=== PATIENT | male | born 1930 | race Caucasian/White ===

== ENCOUNTER 2017-03-27 13:43 | Inpatient (IN) | payer MEDICARE ==
[2017-03-27] VITALS (9 sets, daily range): BP systolic 104–175; BP diastolic 58–96
[~2017-03-27] VITALS: Ht 172.7 cm; Wt 83.9 kg
[~2017-03-27 13:43] MED LIST: AMIO200T2 PO; AMIODARONE HCL 900MG/18ML IV ONE; APIX5TAB PO; ASPI-1012 PO; ATOR40TA71 PO; CALCIUM CHLORIDE 100 MG/ML 10 ML SYG IVP ONE; EPINEPHRINE 0.1 MG/ML 10 ML SYG IVP ONE; ESCI10TA54 PO; FE F1CAP8 PO; FURO40TA7 PO; METO-408 PO; MONT10TA24 PO; NITR0.4T SL; NOREPINEPHRINE BITARTRATE 1 MG/1 ML ML IV ONE; TERA5CAP4 PO
[2017-03-27 14:15] LABS: BASOPHILS % (AUTO) 1.1 % (0.0-5.0); EOSINOPHILS % (AUTO) 2.5 % (0.0-8.0); LYMPHOCYTES % (AUTO) 37.6 % (21.0-51.0); MEAN CORPUSCULAR HEMOGLOBIN 33.5 pg (27.0-33.0); MEAN CORPUSCULAR HGB CONC 35.1 g/dL (32.0-36.0); MEAN CORPUSCULAR VOLUME 95.5 fL (79-99); MONOCYTES % (AUTO) 5.7 % (3.0-13.0); NEUTROPHILS % (AUTO) 53.1 % (40.0-77.0); NUCLEATED RED BLOOD CELLS 0.5 % (0.0-0.19); PLATELET COUNT (AUTO) 95 K/uL (130-400); RED BLOOD CELL COUNT(AUTO) 3.56 MIL/uL (4.50-6.20); RED CELL DISTRIBUTION WIDTH 14.2 % (11.0-15.5); WHITE BLOOD COUNT (AUTO) 3.9 K/uL (4.8-10.8)
[2017-03-27 14:16] LABS: CREATININE 1.7 mg/dL (0.5-1.5); POTASSIUM 3.7 mmol/L (3.5-5.1)
[2017-03-27 14:23] LABS: INR 1.08 (0.85-1.15); PARTIAL THROMBOPLASTIN TIME 22.9 SEC (26.3-35.5); PROTHROMBIN TIME 11.3 SEC (9.6-11.6)
[2017-03-27 14:30] LABS: ALBUMIN 1.9 g/dL (3.5-5.0); BILIRUBIN,TOTAL 0.4 mg/dL (0.2-1.0); CREATINE KINASE MB 3.6 ng/mL (0.5-3.6); TOTAL PROTEIN, SERUM 4.6 g/dL (6.0-8.3)
[2017-03-27] MEDS ORDERED: PROPOFOL 1000 MG/100 ML 100 ML IV ONE (14:31)
[2017-03-27] MEDS ORDERED: ONDANSETRON HCL 4 MG/2 ML VIAL IV PRN (15:45)
[2017-03-27] MEDS ORDERED: ACETAMINOPHEN 325 MG TAB PO PRN ×3 (15:45→22:00)
[2017-03-27 15:48] LABS: ABG BASE EXCESS -4.4 mmol/L (-2.0-3.0); ABG HCO3 18.5 mmol/L (21.0-28.0); ABG OXYGEN SATURATION 99.9 % (95.0-99.0); ABG PCO2 29 mmHg (35-48)
[2017-03-27] MEDS ORDERED: SODIUM CHLORIDE 0.9% 1000ML 1,000 ML IV ONE (17:07)
[2017-03-27 20:21] LABS: CREATINE KINASE MB 42.7 ng/mL (0.5-3.6)
[2017-03-27 20:36] LABS: TROPONIN I 3.3 ng/mL (0.00-0.06)
[2017-03-27] MEDS ORDERED: ZOSYN 3.375GM+NS 50ML 50 ML IV SCH (21:00)
[2017-03-27] MEDS ORDERED: HEPARIN SODIUM 5000UNIT/ML 1ML VIAL SQ SCH (22:00)
[2017-03-27] MEDS: PROPOFOL 1000 MG/100 ML 100 ML IV PRN (22:42)
[2017-03-27] MEDS: MEROPENEM 1 GM VIAL IVP SCH (22:43)
[2017-03-27 22:58] LABS: ABG BASE EXCESS -7.1 mmol/L (-2.0-3.0); ABG OXYGEN SATURATION 99.2 % (95.0-99.0); ABG PCO2 31 mmHg (35-48)
[2017-03-27 23:11] LABS: TROPONIN I 4.93 ng/mL (0.00-0.06)
[2017-03-27] MEDS ORDERED: MULT-1203 PO (23:19)
[2017-03-27] MEDS ORDERED: POTA10CA44 PO (23:19)
[2017-03-27] MEDS ORDERED: AMIO100T4 PO (23:19)
[2017-03-27] MEDS ORDERED: AEC81 PO (23:19)
[2017-03-27] MEDS ORDERED: METO-391 PO (23:19)
[2017-03-28] VITALS (30 sets, daily range): BP systolic 87–137; BP diastolic 31–86
[2017-03-28] MEDS ORDERED: ARTIFICAL TEARS SOL 15 ML ONE (00:48)
[2017-03-28 05:08] LABS: HEMATOCRIT 39.3 % (42-54); MEAN CORPUSCULAR HEMOGLOBIN 32.2 pg (27.0-33.0); MEAN CORPUSCULAR HGB CONC 34.8 g/dL (32.0-36.0); MEAN CORPUSCULAR VOLUME 92.6 fL (79-99); PLATELET COUNT (AUTO) 110 K/uL (130-400); RED BLOOD CELL COUNT(AUTO) 4.24 MIL/uL (4.50-6.20); RED CELL DISTRIBUTION WIDTH 14.2 % (11.0-15.5); WHITE BLOOD COUNT (AUTO) 16.3 K/uL (4.8-10.8)
[2017-03-28 05:10] LABS: ALBUMIN 2.2 g/dL (3.5-5.0); BILIRUBIN,TOTAL 0.5 mg/dL (0.2-1.0); CREATININE 3.1 mg/dL (0.5-1.5); POTASSIUM 3.8 mmol/L (3.5-5.1); TOTAL PROTEIN, SERUM 5.4 g/dL (6.0-8.3)
[2017-03-28] MEDS: MEROPENEM 1 GM VIAL IVP SCH ×2 (05:42→17:13)
[2017-03-28] MEDS: ARTIFICAL TEARS SOL 15 ML OD SCH ×4 (05:43→23:53)
[2017-03-28] MEDS: PROPOFOL 1000 MG/100 ML 100 ML IV PRN ×4 (06:38→20:26)
[2017-03-28] MEDS ORDERED: CLOPIDOGREL BISULFATE 300 MG TAB NG SCH (07:15)
[2017-03-28 07:16] LABS: LYMPHOCYTES % (MANUAL) 3 % (22-44); MAN.DIFF COMMENT-IMPRESSION MANUAL DIFFERENTIAL; MONOCYTES % (MANUAL) 5 % (2-9); PLATELET MORPHOLOGY COMMENT SLIGHTLY DECREASED; SEGMENTED NEUTROPHILS % 92 % (40-70)
[2017-03-28 07:34] LABS: ABG BASE EXCESS -0.7 mmol/L (-2.0-3.0); ABG HCO3 23.2 mmol/L (21.0-28.0); ABG OXYGEN SATURATION 97.7 % (95.0-99.0); ABG PCO2 36 mmHg (35-48)
[2017-03-28] MEDS ORDERED: ENOXAPARIN SODIUM 40 MG/0.4 ML SYRINGE SQ SCH (09:00)
[2017-03-28] MEDS: METOPROLOL TARTRATE 25 MG TAB NG SCH ×2 (09:00→21:00)
[2017-03-28] MEDS ORDERED: FAMOTIDINE/PF 20 MG/2 ML VIAL IV SCH (09:00)
[2017-03-28] MEDS ORDERED: HEPARIN 25000 UNITS/250 ML D5W 250 ML IV PRN (09:45)
[2017-03-28] MEDS ORDERED: MEPERIDINE-PF 25 MG/ML SYG IM PRN (09:45)
[2017-03-28] MEDS ORDERED: NOREPINEPHRINE 4MG/NS 250ML 250 ML IV SCH (09:45)
[2017-03-28] MEDS ORDERED: FENTANYL 2500MCG+NS 250ML 250 ML IV PRN (09:45)
[2017-03-28] MEDS: AMIODARONE HCL 200 MG TABLET PO SCH (10:58)
[2017-03-28] MEDS: LACTATED RINGERS 1000ML 1,000 ML IV SCH ×2 (10:58→23:53)
[2017-03-28] MEDS: ASPIRIN 81MG TAB.CHEW PO SCH (10:58)
[2017-03-28 14:19] LABS: HEMATOCRIT 38.2 % (42-54); MEAN CORPUSCULAR HEMOGLOBIN 31.7 pg (27.0-33.0); MEAN CORPUSCULAR VOLUME 93.3 fL (79-99); PLATELET COUNT (AUTO) 104 K/uL (130-400); RED BLOOD CELL COUNT(AUTO) 4.09 MIL/uL (4.50-6.20); WHITE BLOOD COUNT (AUTO) 18.6 K/uL (4.8-10.8)
[2017-03-28 14:32] LABS: CREATININE 3.2 mg/dL (0.5-1.5); POTASSIUM 3.8 mmol/L (3.5-5.1)
[2017-03-28] MEDS: CHLORHEXIDINE GLUCONATE 473 ML MOUTHWASH MM SCH ×2 (15:13→21:16)
[2017-03-28 15:31] LABS: BAND NEUTROPHILS % (MANUAL) 4 % (0-2); LYMPHOCYTES % (MANUAL) 3 % (22-44); MAN.DIFF COMMENT-IMPRESSION MANUAL DIFFERENTIAL; MONOCYTES % (MANUAL) 6 % (2-9); SEGMENTED NEUTROPHILS % 87 % (40-70)
[2017-03-28 15:38] LABS: PLATELET MORPHOLOGY COMMENT LARGE PLTS PRESENT
[2017-03-28 21:22] LABS: HEMATOCRIT 37.6 % (42-54); MEAN CORPUSCULAR HEMOGLOBIN 31.5 pg (27.0-33.0); MEAN CORPUSCULAR HGB CONC 33.9 g/dL (32.0-36.0); PLATELET COUNT (AUTO) 111 K/uL (130-400); RED BLOOD CELL COUNT(AUTO) 4.04 MIL/uL (4.50-6.20); RED CELL DISTRIBUTION WIDTH 14.3 % (11.0-15.5); WHITE BLOOD COUNT (AUTO) 20.5 K/uL (4.8-10.8)
[2017-03-28 21:36] LABS: CREATININE 3.4 mg/dL (0.5-1.5); POTASSIUM 4.5 mmol/L (3.5-5.1)
[2017-03-28 22:18] LABS: BAND NEUTROPHILS % (MANUAL) 12 % (0-2); LYMPHOCYTES % (MANUAL) 2 % (22-44); MAN.DIFF COMMENT-IMPRESSION MANUAL DIFFERENTIAL; MONOCYTES % (MANUAL) 7 % (2-9); SEGMENTED NEUTROPHILS % 79 % (40-70)
[2017-03-29] VITALS (22 sets, daily range): BP systolic 97–173; BP diastolic 34–87
[2017-03-29] MEDS: PROPOFOL 1000 MG/100 ML 100 ML IV PRN ×3 (03:04→21:53)
[2017-03-29] MEDS: MEROPENEM 1 GM VIAL IVP SCH ×2 (06:17→17:03)
[2017-03-29] MEDS: ARTIFICAL TEARS SOL 15 ML OD SCH ×4 (06:18→23:44)
[2017-03-29] MEDS: CHLORHEXIDINE GLUCONATE 473 ML MOUTHWASH MM SCH ×3 (06:19→22:00)
[2017-03-29 06:43] LABS: HEMATOCRIT 31.4 % (42-54); MEAN CORPUSCULAR HEMOGLOBIN 32.4 pg (27.0-33.0); MEAN CORPUSCULAR VOLUME 92.7 fL (79-99); NUCLEATED RED BLOOD CELLS 0.1 % (0.0-0.19); PLATELET COUNT (AUTO) 102 K/uL (130-400); RED BLOOD CELL COUNT(AUTO) 3.39 MIL/uL (4.50-6.20); RED CELL DISTRIBUTION WIDTH 14.5 % (11.0-15.5); WHITE BLOOD COUNT (AUTO) 18.6 K/uL (4.8-10.8)
[2017-03-29 06:54] LABS: CREATININE 3.6 mg/dL (0.5-1.5); POTASSIUM 4.2 mmol/L (3.5-5.1)
[2017-03-29 07:15] LABS: BAND NEUTROPHILS % (MANUAL) 1 % (0-2); EOSINOPHILS % (MANUAL) 1 % (1-6); LYMPHOCYTES % (MANUAL) 6 % (22-44); MAN.DIFF COMMENT-IMPRESSION MANUAL DIFFERENTIAL; MONOCYTES % (MANUAL) 3 % (2-9); PLATELET MORPHOLOGY COMMENT SLIGHTLY DECREASED; SEGMENTED NEUTROPHILS % 89 % (40-70)
[2017-03-29] MEDS: ASPIRIN 81MG TAB.CHEW PO SCH (08:24)
[2017-03-29] MEDS: AMIODARONE HCL 200 MG TABLET PO SCH (08:24)
[2017-03-29] MEDS: CLOPIDOGREL BISULFATE 75 MG TAB NG SCH (08:24)
[2017-03-29 08:38] LABS: ABG OXYGEN SATURATION 97.2 % (95.0-99.0); ABG PCO2 35 mmHg (35-48)
[2017-03-29] MEDS: METOPROLOL TARTRATE 25 MG TAB NG SCH ×2 (09:00→21:00)
[2017-03-29] MEDS ORDERED: PANTOPRAZOLE 40 MG/VIAL IVP SCH (09:00)
[2017-03-29] MEDS: LACTATED RINGERS 1000ML 1,000 ML IV SCH ×2 (13:32→20:30)
[2017-03-29 15:59] LABS: HEMATOCRIT 30.8 % (42-54); MEAN CORPUSCULAR HEMOGLOBIN 32.6 pg (27.0-33.0); MEAN CORPUSCULAR HGB CONC 35.4 g/dL (32.0-36.0); MEAN CORPUSCULAR VOLUME 92.2 fL (79-99); PLATELET COUNT (AUTO) 114 K/uL (130-400); RED BLOOD CELL COUNT(AUTO) 3.34 MIL/uL (4.50-6.20); RED CELL DISTRIBUTION WIDTH 14.4 % (11.0-15.5); WHITE BLOOD COUNT (AUTO) 19.3 K/uL (4.8-10.8)
[2017-03-29 16:13] LABS: CREATININE 4.1 mg/dL (0.5-1.5); POTASSIUM 4.7 mmol/L (3.5-5.1)
[2017-03-29 16:56] LABS: BAND NEUTROPHILS % (MANUAL) 6 % (0-2); LYMPHOCYTES % (MANUAL) 1 % (22-44); MONOCYTES % (MANUAL) 2 % (2-9); SEGMENTED NEUTROPHILS % 91 % (40-70)
[2017-03-29 16:59] LABS: MAN.DIFF COMMENT-IMPRESSION MANUAL DIFFERENTIAL
[2017-03-29 23:01] LABS: HEMATOCRIT 26.6 % (42-54); MEAN CORPUSCULAR HEMOGLOBIN 32.8 pg (27.0-33.0); MEAN CORPUSCULAR HGB CONC 35.3 g/dL (32.0-36.0); NUCLEATED RED BLOOD CELLS 0.1 % (0.0-0.19); PLATELET COUNT (AUTO) 110 K/uL (130-400); RED BLOOD CELL COUNT(AUTO) 2.86 MIL/uL (4.50-6.20); RED CELL DISTRIBUTION WIDTH 14.4 % (11.0-15.5); WHITE BLOOD COUNT (AUTO) 17.5 K/uL (4.8-10.8)
[2017-03-29 23:12] LABS: CREATININE 4.3 mg/dL (0.5-1.5); POTASSIUM 4.8 mmol/L (3.5-5.1)
[2017-03-29 23:37] LABS: BAND NEUTROPHILS % (MANUAL) 3 % (0-2); LYMPHOCYTES % (MANUAL) 3 % (22-44); MONOCYTES % (MANUAL) 4 % (2-9); SEGMENTED NEUTROPHILS % 90 % (40-70)
[2017-03-29 23:38] LABS: MAN.DIFF COMMENT-IMPRESSION MANUAL DIFFERENTIAL
[2017-03-29 23:39] LABS: PLATELET MORPHOLOGY COMMENT ADEQUATE
[2017-03-30] VITALS (30 sets, daily range): BP systolic 100–169; BP diastolic 44–90
[2017-03-30] MEDS: PROPOFOL 1000 MG/100 ML 100 ML IV PRN (02:47)
[2017-03-30 04:48] LABS: HEMATOCRIT 24.5 % (42-54); MEAN CORPUSCULAR HEMOGLOBIN 31.7 pg (27.0-33.0); MEAN CORPUSCULAR HGB CONC 34.5 g/dL (32.0-36.0); MEAN CORPUSCULAR VOLUME 91.9 fL (79-99); NUCLEATED RED BLOOD CELLS 0.1 % (0.0-0.19); PLATELET COUNT (AUTO) 97 K/uL (130-400); RED BLOOD CELL COUNT(AUTO) 2.67 MIL/uL (4.50-6.20); RED CELL DISTRIBUTION WIDTH 14.4 % (11.0-15.5)
[2017-03-30 05:10] LABS: BAND NEUTROPHILS % (MANUAL) 4 % (0-2); LYMPHOCYTES % (MANUAL) 5 % (22-44); MAN.DIFF COMMENT-IMPRESSION MANUAL DIFFERENTIAL; MONOCYTES % (MANUAL) 1 % (2-9); SEGMENTED NEUTROPHILS % 90 % (40-70)
[2017-03-30 05:12] LABS: CREATININE 4.4 mg/dL (0.5-1.5); POTASSIUM 4.6 mmol/L (3.5-5.1)
[2017-03-30] MEDS: MEROPENEM 1 GM VIAL IVP SCH ×2 (05:45→17:17)
[2017-03-30] MEDS: ARTIFICAL TEARS SOL 15 ML OD SCH ×4 (05:46→23:03)
[2017-03-30] MEDS: CHLORHEXIDINE GLUCONATE 473 ML MOUTHWASH MM SCH ×3 (05:46→21:05)
[2017-03-30] MEDS: CLOPIDOGREL BISULFATE 75 MG TAB NG SCH (09:37)
[2017-03-30] MEDS: ASPIRIN 81MG TAB.CHEW PO SCH (09:37)
[2017-03-30] MEDS: FAMOTIDINE/PF 20 MG/2 ML VIAL IV SCH (09:37)
[2017-03-30] MEDS: AMIODARONE HCL 200 MG TABLET PO SCH (09:37)
[2017-03-30] MEDS: METOPROLOL TARTRATE 25 MG TAB NG SCH ×2 (09:38→21:04)
[2017-03-30] MEDS: LACTATED RINGERS 1000ML 1,000 ML IV SCH ×2 (11:30→23:01)
[2017-03-31] VITALS (20 sets, daily range): BP systolic 127–166; BP diastolic 45–84
[2017-03-31 03:52] LABS: BASOPHILS % (AUTO) 0.6 % (0.0-5.0); HEMATOCRIT 23.3 % (42-54); LYMPHOCYTES % (AUTO) 5.1 % (21.0-51.0); MEAN CORPUSCULAR HEMOGLOBIN 31.4 pg (27.0-33.0); MEAN CORPUSCULAR HGB CONC 34.1 g/dL (32.0-36.0); MEAN CORPUSCULAR VOLUME 92.1 fL (79-99); MONOCYTES % (AUTO) 7.1 % (3.0-13.0); NEUTROPHILS % (AUTO) 87.2 % (40.0-77.0); NUCLEATED RED BLOOD CELLS 0.1 % (0.0-0.19); PLATELET COUNT (AUTO) 110 K/uL (130-400); RED BLOOD CELL COUNT(AUTO) 2.53 MIL/uL (4.50-6.20); WHITE BLOOD COUNT (AUTO) 18.5 K/uL (4.8-10.8)
[2017-03-31 03:57] LABS: INR 0.96 (0.85-1.15); PARTIAL THROMBOPLASTIN TIME 41.5 SEC (26.3-35.5); PROTHROMBIN TIME 10.1 SEC (9.6-11.6)
[2017-03-31 04:22] LABS: CREATININE 4.8 mg/dL (0.5-1.5); MAGNESIUM 2.6 mg/dL (1.80-2.40); PHOSPHORUS 6.7 mg/dL (2.5-4.9); POTASSIUM 4.2 mmol/L (3.5-5.1)
[2017-03-31] MEDS: MEROPENEM 1 GM VIAL IVP SCH (05:30)
[2017-03-31] MEDS: ARTIFICAL TEARS SOL 15 ML OD SCH ×2 (05:32→12:00)
[2017-03-31] MEDS: CHLORHEXIDINE GLUCONATE 473 ML MOUTHWASH MM SCH ×2 (05:32→14:14)
[2017-03-31] MEDS: ASPIRIN 81MG TAB.CHEW PO SCH (08:48)
[2017-03-31] MEDS: METOPROLOL TARTRATE 25 MG TAB NG SCH (08:48)
[2017-03-31] MEDS: AMIODARONE HCL 200 MG TABLET PO SCH (08:48)
[2017-03-31] MEDS: FAMOTIDINE/PF 20 MG/2 ML VIAL IV SCH (08:48)
[2017-03-31] MEDS: CLOPIDOGREL BISULFATE 75 MG TAB NG SCH (08:49)
[2017-03-31] MEDS: MORPHINE SULFATE 2 MG/ML 1ML SYG IM PRN ×6 (13:02→20:30)
[2017-03-31] MEDS: LORAZEPAM 2 MG/ML 1 ML VIAL IM PRN ×2 (13:02→20:37)
[2017-03-31] MEDS ORDERED: MORPHINE SULFATE 5 MG/ML VIAL IV PRN (13:30)
[2017-03-31] MEDS ORDERED: MIDAZOLAM HCL 1 MG/ML 2ML VIAL ONE (13:35)
[2017-03-31] MEDS: MIDAZOLAM HCL 1 MG/ML 2ML VIAL IVP PRN ×3 (14:40→17:51)
[2017-03-31] MEDS ORDERED: MEROPENEM 500 MG VIAL IVP SCH (18:00)
[2017-03-31] MEDS ORDERED: MORPHINE SULFATE 8 MG/ML VIAL ONE (18:55)
[2017-03-31] MEDS: MORPHINE SULFATE 2 MG/ML 1ML SYG IVP PRN (22:41)
[2017-04-01] MEDS: LORAZEPAM 2 MG/ML 1 ML VIAL IM PRN ×3 (00:06→04:40)
[2017-04-01] MEDS: MORPHINE SULFATE 2 MG/ML 1ML SYG IVP PRN (00:10)
[2017-04-01] MEDS ORDERED: MORPHINE SULFATE 8 MG/ML VIAL ONE ×4 (01:22→06:37)
[2017-04-01] MEDS ORDERED: ACETAMINOPHEN 650 MG SUPPOSITORY RC PRN (07:45)
== END 2017-04-01 09:07 | disposition expired | DRG 207 ==
LOC: EDH 13:43 → EDHIP 15:39 → 2BH 20:56 → 3AH 03-31 18:32
PROVIDERS: ADMIT Family Medicine; ATTEND Family Medicine
PROC: 5A1955Z Respiratory Ventilation, Greater than 96 Consecutive Hours (ICD-10-PCS; principal; 2017-03-27)
PROC: 5A12012 Performance of Cardiac Output, Single, Manual (ICD-10-PCS; 2017-03-27)
PROC: 0BH17EZ Insertion of Endotracheal Airway into Trachea, Via Natural or Artificial Opening (ICD-10-PCS; 2017-03-27)
DX: J96.00 Acute respiratory failure, unspecified whether with hypoxia or hypercapnia (principal); I21.4 Non-ST elevation (NSTEMI) myocardial infarction; I46.9 Cardiac arrest, cause unspecified; A41.9 Sepsis, unspecified organism; G93.1 Anoxic brain damage, not elsewhere classified; N17.9 Acute kidney failure, unspecified; I48.0 Paroxysmal atrial fibrillation; G25.3 Myoclonus; I42.9 Cardiomyopathy, unspecified; I13.0 Hypertensive heart and chronic kidney disease with heart failure and stage 1 through stage 4 chronic kidney disease, or unspecified chronic kidney disease; T68.XXXA Hypothermia, initial encounter; B96.89 Other specified bacterial agents as the cause of diseases classified elsewhere; Z66 Do not resuscitate; E11.22 Type 2 diabetes mellitus with diabetic chronic kidney disease; E78.5 Hyperlipidemia, unspecified; I25.10 Atherosclerotic heart disease of native coronary artery without angina pectoris; I34.0 Nonrheumatic mitral (valve) insufficiency; I35.0 Nonrheumatic aortic (valve) stenosis; I49.3 Ventricular premature depolarization; I50.9 Heart failure, unspecified; I51.3 Intracardiac thrombosis, not elsewhere classified; N18.9 Chronic kidney disease, unspecified; Z51.5 Encounter for palliative care; Z79.01 Long term (current) use of anticoagulants; I25.2 Old myocardial infarction; Z79.02 Long term (current) use of antithrombotics/antiplatelets; Z79.82 Long term (current) use of aspirin; Z95.1 Presence of aortocoronary bypass graft; Z95.3 Presence of xenogenic heart valve
CPT/HCPCS: 31500; 36415; 36600; 70450; 71045; 76770; 80048; 80053; 82550; 82553; 82803; 82948; 83735; 83874; 83880; 84100; 84484; 85025; 85610; 85730; 87040; 87186; 87324; 92950; 93005; 93306; 94002; 94003; 94770; 99291; A4218; C9113; J0171; J0282; J1644; J2060; J2175; J2185; J2250; J2270; J2704; J3490; J7030; J7120